=== PATIENT | male | born 1980 | race Caucasian/White ===

== ENCOUNTER 2022-01-05 13:41 | Emergency (ER) | payer OTHER ==
[~2022-01-05] VITALS: Ht 177.8 cm; Wt 88.0 kg
[2022-01-05 13:41] VITALS: BP 149/89
[2022-01-05] MEDS ORDERED: GI COCKTAIL 50ML BTL(HYOSCYAMINE/MAALOX/LIDOCAINE VISCOUS)(1:3:1) PO ONE (16:45)
== END 2022-01-05 17:33 | disposition home or self-care (01) ==
LOC: M ED 13:41
DX: R09.89 Other specified symptoms and signs involving the circulatory and respiratory systems (principal)